=== PATIENT | male | born 2005 | race Caucasian/White ===

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

== ENCOUNTER 2023-04-24 10:05 | Emergency (ER) | payer OTHER ==
[~2023-04-24] VITALS: Ht 167.6 cm; Wt 63.5 kg
[2023-04-24] MEDS ORDERED: AZITHROMYCIN 250 MG TAB PO ONE (10:25)
[2023-04-24 10:48] LABS: BILIRUBIN Negative (Negative); BLOOD Negative (Negative); CLARITY Clear (Clear); COLOR Yellow (Yellow); GLUCOSE Negative (Negative); KETONE Negative (Negative); LEUKO ESTERASE Negative (Negative); NITRITE Negative (Negative); PH 6.5 (4.5-8.0); SPECIFIC GRAVITY 1.015 (1.001-1.030); UROBILINOGEN 0.2 E.U./dl (0.0-1.0)
[2023-04-24 11:02] LABS: BACTERIA TRACE; EPITHELIAL CELLS 0-2
[2023-04-24] MEDS ORDERED: Water, Sterile 10 ML VIAL ONE (11:40)
== END 2023-04-24 11:50 | disposition home or self-care (01) ==
LOC: ED 10:05
PROVIDERS: Internal Medicine
DX: R30.0 Dysuria (principal); Z20.2 Contact with and (suspected) exposure to infections with a predominantly sexual mode of transmission; R30.9 Painful micturition, unspecified; Z98.890 Other specified postprocedural states

== ENCOUNTER 2023-04-28 18:31 | Emergency (ER) | payer OTHER ==
[~2023-04-28] VITALS: Ht 170.1 cm; Wt 59.0 kg
== END 2023-04-28 21:44 | disposition left against medical advice (07) ==
LOC: ED 18:31
DX: N50.819 Testicular pain, unspecified (principal); Z53.21 Procedure and treatment not carried out due to patient leaving prior to being seen by health care provider

== ENCOUNTER 2023-04-29 12:20 | Emergency (ER) | payer OTHER ==
[~2023-04-29] VITALS: Ht 170.1 cm; Wt 59.0 kg
[2023-04-29 13:02] LABS: BILIRUBIN Negative (Negative); BLOOD Negative (Negative); CLARITY Clear (Clear); COLOR Yellow (Yellow); GLUCOSE Negative (Negative); KETONE Negative (Negative); LEUKO ESTERASE Negative (Negative); NITRITE Negative (Negative); SPECIFIC GRAVITY <= 1.005 (1.001-1.030)
[2023-04-29 13:26] LABS: EPITHELIAL CELLS 0-2; RBC 0-2 rbc/hpf (0-2); WBC 0-2 wbc/hpf (0-5)
== END 2023-04-29 14:08 | disposition home or self-care (01) ==
LOC: ED 12:20
PROVIDERS: Physician Assistant Medical
DX: N48.89 Other specified disorders of penis (principal); F90.9 Attention-deficit hyperactivity disorder, unspecified type; Z98.890 Other specified postprocedural states; Z90.89 Acquired absence of other organs

== ENCOUNTER 2023-10-10 11:08 | Emergency (ER) | payer OTHER ==
[~2023-10-10] VITALS: Ht 175.2 cm; Wt 56.7 kg
[2023-10-10] MEDS ORDERED: Motrin,Rufen800 MG PO (12:05)
== END 2023-10-10 12:12 | disposition home or self-care (01) ==
LOC: ED 11:08
DX: M67.432 Ganglion, left wrist (principal); F90.9 Attention-deficit hyperactivity disorder, unspecified type; Z87.891 Personal history of nicotine dependence; Z88.8 Allergy status to other drugs, medicaments and biological substances; Z98.890 Other specified postprocedural states; Z90.89 Acquired absence of other organs